=== PATIENT | female | born 1990 | race Caucasian/White ===

== ENCOUNTER → 2020-12-12 15:17 | Outpatient (CLI) | payer OTHER, SELFPAY ==
[2020-12-12 17:55] LABS: Absolute Lymphocyte Count 2.77 X10^3/uL (0.83-4.51); Absolute Neutrophil Count 3.1 X10^3/uL (2.0-7.7); Basophil# 0.05 X10^3/uL; Basophil% 0.8 % (0-1); Eosinophil# 0.07 X10^3/uL; Eosinophils% 1.1 % (0-5); Hematocrit 38.4 % (37-47); Hemoglobin 12.3 g/dL (12.0-15.0); Lymphocyte # 2.77 X10^3/ul (0.83-4.51); Lymphocyte % 42.2 % (19-41); Mean Corpuscular Hgb 28.4 pg (27.0-32.0); Mean Corpuscular Volume 88.7 fL (81-99); Mean Platelet Vol. 9.9 fl (6.2-12.0); Monocyte# 0.53 X10^3/uL; Monocyte% 8.1 % (0-10); NRBC Flagged by Analyzer 0 % (0-5); Neutrophil # 3.13 X10^3/uL (2.7-7.7); Neutrophil % 47.6 % (47-70); Platelet Count 319 K/mm3 (150-450); RBC Distribution Width CV 11.2 % (11.6-14.6); RBC Distribution Width SD 36.4 fl (35.1-43.9); Red Blood Count 4.33 M/mm3 (4.2-5.4); White Blood Count 6.6 K/mm3 (4.4-11.0)
[2020-12-12 18:30] LABS: ALB/GLOB Ratio 0.7 RATIO (0.9-2.4); AST(SGOT) 24 U/L (15-37); Alanine Aminotransfer ALT/SGPT 49 U/L (13-56); Albumin, Serum 3.2 g/dL (3.2-5.0); Alkaline Phosphatase 69 U/L (45-117); Anion Gap 5 (5-15); BUN 8 mg/dL (7-18); BUN/Creat Ratio 10.6 RATIO (10-20); Calcium,Total 8.8 mg/dL (8.5-10.1); Chloride 105 mmol/L (98-107); Creatinine, Serum 0.76 mg/dL (0.55-1.02); EST Glomerular Filtration Rate 95 mL/min (>60); Est Glom Filt Rate - Afr Amer 114 mL/min (>60); Follicle Stimulating Hormone < 0.2 mIU/mL; Globulin 4.3 g/dL (2.2-4.2); Glucose 86 mg/dL (74-106); Luteinizing Hormone < 0.2 mIU/mL; Potassium 3.7 mmol/L (3.5-5.1); Protein, Total 7.5 g/dL (6.4-8.2); Sodium Level 138 mmol/L (136-145); Thyroid Stim Hormone (TSH) 1.52 uIU/mL (0.358-3.74)
== END ==
PROVIDERS: PCP Family Medicine; Referring Provider Family Medicine; Visit Provider Family Medicine
DX: E28.2 Polycystic ovarian syndrome (principal)
CPT/HCPCS: 36415; 80053; 82627; 83001; 83002; 84403; 84443; 85025; 82626

== ENCOUNTER → 2021-04-02 | Outpatient (CLI) | payer OTHER, SELFPAY | END | disposition home or self-care (01) | PROVIDERS: PCP Family Medicine; Referring Provider Family Medicine; Visit Provider Family Medicine | DX: R09.89 Other specified symptoms and signs involving the circulatory and respiratory systems (principal) | CPT/HCPCS: 87635; U0005; U0003 ==

== ENCOUNTER 2021-07-09 12:27 | Outpatient (CLI) | payer BC, SELFPAY ==
[2021-07-09 15:18] LABS: Internal QC Validated? YES +Cl - CLEAR BKGD
[2021-07-09 15:27] LABS: Pregnancy, Serum, hCG Quali. POSITIVE Negative
== END 2021-07-09 23:59 | disposition short-term general hospital (02) ==
LOC: MFPLAB 12:31
PROVIDERS: PCP Family Medicine; Referring Provider Family Medicine; Visit Provider Registered Nurse
DX: Z34.90 Encounter for supervision of normal pregnancy, unspecified, unspecified trimester (principal)
CPT/HCPCS: 36415; 84703

== ENCOUNTER 2021-11-20 15:45 | Outpatient (CLI) | payer BC, SELFPAY ==
[2021-11-20] VITALS (8 sets, daily range): BP systolic 135; BP diastolic 86; PULSE 104–109; TEMP 36.3; O2SAT 92–100; BMI 34.4
[2021-11-20 17:38] LABS: ROM Internal Control Test YES-OK TO RESULT pt. (Internal QC); ROM Patient Test Negative (Negative)
--- NOTE | 2021-11-20 18:27 | OB.TRI.HP_ITS ---
HPI - General HPI Narrative JOSSY BERKOWITZ, is a 31 F G1 at 24.2 weeks gestation who presents to triage with leaking of fluid. Patient c/o constipation and was trying to have a bowel movement at home. She felt a pop and felt fluid come out. She was unable to have a complete bowel movement. Positive movement. No obstetrical concer ns. Maternal Data Information DIETER Calculator Estimated Delivery Date Method Current WG Current Estimate 03/10/22 Manual 24w 2d PFSH PFSH Home Medications lp-ik-[id number]-FA-herbal cmplx#190 [Vitamin D3 Complete] 1 tab PO DAILY 11/20/21 [History Last Taken Unknown] byejgpli-rxn-Wp-FA [] 1 tab PO DAILY 11/20/21 [History Last Taken Unknown] valacyclovir [Valtrex] 500 mg PO BID 11/20/21 [History Last Taken 11/20/21] Allergy/AdvReac Type Severity Reaction Status Date / Time No Known Allergies Allergy Verified 11/20/21 18:28 ROS Eyes Eyes: Denies blurry vision Cardiovascular Cardiovascular: Reports none; Denies chest pain at rest, chest pain with activity or dizziness Respiratory/Chest Respiratory/Chest: Denies cough or dyspnea Gastrointestinal Gastrointestinal: Reports as per HPI, abdominal pain, constipation and excessive flatus Genitourinary Genitourinary: Denies dysuria Musculoskeletal Musculoskeletal: Reports none Integumentary Integumentary: Reports none; Denies rash Neurologic Neurologic: Denies dizziness, headache(s) or other visual disturbances Psychiatric Psychiatric: Reports none Physical Exam Const alert and no apparent distress General Appearance: cooperative Orientation / Consciousness: awake Exam Limitations: no limitations HEENT normocephalic Eyes General Eye: normal appearance of both eyes Neck full ROM Chest inspection of chest normal Resp normal respiratory effort and normal air movement Effort and Inspection: symmetric chest movement Auscultation: clear to auscultation bilaterally Cardio regular rate GI soft to palpation Inspection: and other Back/Spine normal ROM Extremity full ROM, normal capillary refill and no calf tenderness Skin no rashes or lesions noted Neuro oriented x3 and CN's II-XII intact bilaterally Psych mental status grossly normal Assessment & Plan (1) Constipation: (2) 24 weeks gestation of : (3) Abdominal pain: PLAN: FHT via doppler 150 bpm Positive movement CE- closed No vaginal bleeding Large amount of hard stool in bowel felt with vaginal exam and impacting vagina Liquid stool noted draining Patient able to pass small amount of stool while here on unit ROM plus- negative Cleared obstetrically - Patient to ED for evaluation for possible bowel impaction Dr. Hairston involved in plan of care
== END 2021-11-20 18:15 | disposition home or self-care (01) ==
LOC: WPOUT 15:50 → WP 15:50
PROVIDERS: PCP Family Medicine; Visit Provider Advanced Practice Midwife
DX: O26.892 Other specified pregnancy related conditions, second trimester (principal); Z3A.24 24 weeks gestation of pregnancy; K59.00 Constipation, unspecified; R10.9 Unspecified abdominal pain
CPT/HCPCS: 59050; 84112; 99218; G0378

== ENCOUNTER 2021-11-20 18:25 | Emergency (ER) | payer BC, SELFPAY ==
[2021-11-20 18:26] VITALS: BP 121/74; PULSE 94; RESP 18; TEMP 36.4; O2SAT 97; BMI 34.3
--- NOTE | 2021-11-20 19:11 | EX.ED.DYSGE1 ---
HPI History of Present Illness Chief Complaint: Constipation Informant: patient Onset/Context/Timing Onset: Today Context: Gradual Onset Current Severity: Gone Maximum Severity: Severe Worsened by: nothing Relieved by: having BM Associated Symptoms Associated Symptoms: nausea earlier, abd cramping, BRBPR Narrative Narrative: Patient is 24 weeks , she has been constipated recently, today she felt like she needed to have a bowel movement but was unable, except for a couple very small pieces of hard stool followed by some liquid, and subsequently she started having some blood with it and colicky abdominal cramping so she presented herself to the OB triage area, patient states they checked the baby and the baby was doing well, and while she was there she had an extremely large bowel movement and subsequently felt a lot better. She was sent to the emergency department afterwards. PFSH PFSH Medical History no medical history Home Medications hydrocortisone [Proctosol HC] 1 applic NM QHS PRN #30 g 11/20/21 [Rx Last Taken Unknown] magnesium oxide 400 mg PO DAILY 11/20/21 [History Last Taken Unknown] yd-hk-gmoh-FA-herbal cmplx#190 [Vitamin D3 Complete] 1 tab PO DAILY 11/20/21 [History Last Taken Unknown] hxpxgkdn-vja-Wu-FA [] 1 tab PO DAILY 11/20/21 [History Last Taken Unknown] valacyclovir [Valtrex] 500 mg PO BID 11/20/21 [History Last Taken 11/20/21] Allergy/AdvReac Type Severity Reaction Status Date / Time No Known Allergies Allergy Verified 11/20/21 18:28 Family History no significant family his Surgical History Hx of appendectomy Social History Smoking Status: Never smoker ROS ROS ED Constitutional Constitutional ED: Denies chills or fever(s) Eyes Eyes: Denies change in vision or diplopia ENT ENT ED: Denies rhinorrhea or sore throat Cardiovascular Cardiovascular: Denies chest pain or palpitations Respiratory/Chest Respiratory/Chest: Denies cough or dyspnea Gastrointestinal Gastrointestinal: Reports abdominal pain, constipation, nausea and rectal bleeding; Denies diarrhea or vomiting Genitourinary Genitourinary ED: Denies dysuria or hematuria Musculoskeletal Musculoskeletal: Denies back pain or neck pain Integumentary Denies abscess or rash Neurologic Neurologic: Denies headache(s), paresthesias or weakness Psychiatric Psychiatric: Denies anxiety or suicidal thoughts EXAM Physical Exam Const Vital Signs: 11/20/21 18:26 Temperature 97.6 F L Temperature Source Temporal Pulse Rate 94 Respiratory Rate 18 Blood Pressure 121/74 H Blood Pressure Mean 89 Pulse Ox 97 Oxygen Delivery Method Room Air Positive well nourished and well developed General Appearance ED: well developed and NAD HEENT Reports moist mucous membranes normocephalic and atraumatic Eyes PERRL and EOMs intact bilaterally Neck full ROM and supple Resp normal respiratory effort and clear to auscultation bilaterally Cardio regular rate, regular rhythm and no murmurs GI non-tender GI Narrative: Gravid uterus above the umbilicus. At approximately 5:00, there is a small tender clotted nonthrombosed hemorrhoid without active bleeding. At approximately 11:00 there is a small nonbleeding tender fissure. No perianal or rectal abscess palpable. No active bleeding. Auscultation: normoactive bowel sounds Palpation: soft Back/Spine no CVA tenderness General Back: other FROM Extremity normal to inspection General Extremety ED: Negative for edema, pulses abnormal or tenderness General Extremity: Negative for edema or pulses abnormal Neuro oriented x3, CN's II-XII intact bilaterally and no sensory deficits noted Sensorium / Orientation: awake and alert Motor Exam: strength 5/5 throughout Skin no rashes or lesions noted and no wounds MDM MDM MDM Narrative Medical decision making narrative: Patient is very benign abdomen, and on rectal exam, she has a small hemorrhoid and possibly a small fissure. She states that she was advised to come to the ED and get a scan for an obstruction. As I discussed with her, she does not have a bowel obstruction, she is no longer nauseated, and I do not think she needs any imaging to see if there is more stool in her colon given that she is . I think the risks there outweigh the potential benefit. She states she had a large bowel movement already, I do not think we need to do any more treatments right now. However for the hemorrhoid, I will prescribe her some hydrocortisone cream for that, and we discussed sitz bath's for the possible fissure. We also discussed using MiraLAX at home to help soften her stools and she is comfortable with that plan. Discharge Plan Triage Chief Complaint: Constipation ED Provider: Paul Leger Dx/Rx/DC Orders Clinical Impression: Constipation, Bleeding external hemorrhoids, Anal fissure Instructions: ED Understanding Anal Fissures, Taking a Sitz Bath, ED Hemorrhoids Prescriptions: New hydrocortisone [Proctosol HC] 2.5 % cream with perineal applicator 1 applic NM QHS PRN (Reason: hemorrhoids) Qty: 30 RF: 0 No Action valacyclovir [Valtrex] 500 mg Tablet 500 mg PO BID RF: 0 1 mg Tablet 1 tab PO DAILY RF: 0 Vitamin D3 Complete 18 mg iron-800 mcg-150 mg Tablet 1 tab PO DAILY RF: 0 magnesium oxide 400 mg (241.3 mg magnesium) tablet 400 mg PO DAILY RF: 0 Primary Care Provider: Domingo Dubois Referrals: Domingo Dubois MD [Primary Care Provider] - (And/or your [employer] in 1 week if not improving) Activity Restrictions/Additional Instructions: Sitz baths at least once daily until no more perianal pain Disposition Disposition: Home, Self Care
[2021-11-20 19:24] VITALS: PULSE 78; RESP 16; O2SAT 98
== END 2021-11-20 19:24 | disposition home or self-care (01) ==
PROVIDERS: Emergency Provider Emergency Medicine; PCP Family Medicine; Visit Provider Emergency Medicine
DX: O99.612 Diseases of the digestive system complicating pregnancy, second trimester (principal); O26.892 Other specified pregnancy related conditions, second trimester; K60.2 Anal fissure, unspecified; Z3A.24 24 weeks gestation of pregnancy; O22.42 Hemorrhoids in pregnancy, second trimester
CPT/HCPCS: 99282

== ENCOUNTER → 2022-03-01 | Outpatient (CLI) | payer BC, SELFPAY ==
[2022-03-01 19:34] VITALS: PULSE 80; O2SAT 98
[2022-03-01 19:47] VITALS: BP 130/84; PULSE 77; BMI 38.7
[2022-03-01 20:00] VITALS: BP 144/91; PULSE 79
[2022-03-01 20:03] VITALS: BP 145/94; PULSE 75
[2022-03-01 20:19] VITALS: BP 131/84; PULSE 73
[2022-03-01 20:58] LABS: Hematocrit 35.7 % (37-47); Hemoglobin 11.3 g/dL (12.0-15.0); Mean Corp Hgb Conc 31.7 g/dL (32-36); Mean Corpuscular Hgb 29.1 pg (27.0-32.0); Mean Platelet Vol. 9.9 fl (6.2-12.0); Platelet Count 292 K/mm3 (150-450); RBC Distribution Width CV 14.4 % (11.6-14.6); RBC Distribution Width SD 47.6 fl (35.1-43.9); Red Blood Count 3.88 M/mm3 (4.2-5.4); White Blood Count 10.7 K/mm3 (4.4-11.0)
[2022-03-01 21:13] LABS: AST(SGOT) 18 U/L (15-37); Alanine Aminotransfer ALT/SGPT 22 U/L (13-56); Creatinine, Serum 0.85 mg/dL (0.55-1.02); EST Glomerular Filtration Rate 82 mL/min (>60); Est Glom Filt Rate - Afr Amer 99 mL/min (>60); Uric Acid 5.9 mg/dL (2.6-6.0)
[2022-03-01 21:14] LABS: Protein, Urine (Random) 6.5 mg/dL (<11.9); Protein:Creat Ratio 81 mg/g CRE (0-200)
--- NOTE | 2022-03-01 21:22 | HP.PCM.OB_ITS ---
HPI - General General Date of Admission: 03/01/22 Date of Service: 03/01/22 Chief Complaint: headache HPI Narrative JOSSY BERKOWITZ, is a 31 F at 38w2d who presents with a MCCABE. She states she has had a MCCABE all day. Took Tylenol which improved the MCCABE, and it is now very mild. No vision changes. No upper abd pain. Some nausea but she has been eating fair food and then [employer] tonight. Some pressure. No ctx, vb, lof. Good FM. Maternal Data Information DIETER Calculator Estimated Delivery Date Method Current WG Current Estimate 03/10/22 Manual 38w 5d PFSH [facility] Medical History (Updated 03/01/22 @ 21:[address] Ruthy Sahu, DO) Genital herpes affecting Gestational HTN Headache Home Medications magnesium oxide 400 mg (241.3 mg magnesium) tablet 400 mg PO DAILY 11/20/21 [History Last Taken 02/28/22 21:30] multivit with byx-qwdy-MI-#[id number] 18 mg iron-800 mcg-150 mg tablet (Vitamin D3 Complete) 1 tab PO QODAY 11/20/21 [History Last Taken 02/27/22] satqljpg-osf-Al-FA 1 mg tablet 1 tab PO DAILY 11/20/21 [History Last Taken Unknown] valacyclovir 500 mg tablet (Valtrex) 500 mg PO BID 11/20/21 [History Last Taken 03/01/22 06:00] aspirin 81 mg capsule 81 mg PO DAILY high bmi 03/01/22 [History Last Taken 03/01/22 06:00] Allergy/AdvReac Type Severity Reaction Status Date / Time No Known Allergies Allergy Verified 03/01/22 19:49 Surgical History Hx of appendectomy Social History Smoking Status: Never smoker NST FHR Rate Baby A Baseline: 140 Variability:: Moderate Accelerations:: 15 x 15 Decelerations:: None NST Reactive:: Yes FHR Category:: Category I Uterine Activity:: No ctx's Vital Signs Vital Signs Vital Signs: 03/01/22 19:34 03/01/22 19:34 03/01/22 19:47 Pulse Rate 80 Blood Pressure 130/84 H BP Systolic 130 BP Diastolic 84 Pulse Ox 98 03/01/22 19:47 03/01/22 20:00 03/01/22 20:00 Pulse Rate 77 79 Blood Pressure 144/91 H BP Systolic 144 BP Diastolic 91 Pulse Ox 03/01/22 20:03 03/01/22 20:03 03/01/22 20:19 Pulse Rate 75 Blood Pressure 145/94 H 131/84 H BP Systolic 145 131 BP Diastolic 94 84 Pulse Ox 03/01/22 20:19 Pulse Rate 73 Blood Pressure BP Systolic BP Diastolic Pulse Ox Weight Weight: 247 lb 3.2 oz Body Mass Index (BMI) 38.7 Physical Exam Const alert and no apparent distress General Appearance: comfortable HEENT normocephalic Resp normal respiratory effort GI soft to palpation and non-tender Extremity no calf tenderness Extremity Narrative: No hyperreflexia, no clonus, +2 pitting edema bilaterally of LE's Labs Labs Labs: Hct 35.7 % (37-47) L Hgb 11.3 g/dL (12.0-15.0) L Assessment & Plan (1) 38 weeks gestation of : PLAN: - Pt presents at 38 wks with MCCABE. The MCCABE is very mild and has improved with Tylenol. BP mild range. Pre e labs WNL. Had 1 mild range BP in the office as well around 37 week gestation. Given gHTN and 38 week gestation recommend delivery. No evidence of pre e at this time. Cvx 0.5/t/h. Bedside TAUS performed and confirms vertex presentation. GBS negative. Estimated weight expected to be < 4500 g and pelvis adequate. Anticipate vaginal delivery. Discussed r/b/a to induction of labor and pt desires to proceed. She understands we will have to wait to start induction until we have appropriate staff support given current volume on L&D. Discussed Cytotec, Cruz, Pitocin and AROM. Questions answered. - Rh negative - Obesity - H/o HSV: On Acyclovir and no evidence of outbreak. No prodromal symptoms - H/o anemia: Hgb ~11 on admission (2) Gestational hypertension: (3) Obesity affecting : (4) Rh negative status during : (5) History of herpes genitalis:
--- NOTE | 2022-03-01 21:56 | PCM.PN.BLA ---
Progress Note At bedside to discuss plan of care with patient as given staffing issues and volume on L&D induction of labor is unlikely to be started overnight. Pre e work up is negative. Patient's headache has resolved and she feels well. FHT reassuring and reactive. Most recent BP's normal. She had 2 mild range BP's 3 minutes apart. Elevated BP in the office was recorded to be 130/80 and normal on repeat. Discussed recommendation is for IOL given likely gHTN. Discussed risk of developing pre eclampsia and risks with pre eclampsia including but not limited to seizure, stroke, or maternal . Discussed option for going home to sleep tonight, and I will call her in the morning to check in and get an update on L&D as well. She understands risks with this option, and wishes to go home. Also discussed option for staying for admission and BP monitoring until induction is able to be started. Currently induction of labor is able to be started tomorrow night, and possibly tomorrow in the morning. Discussed warning signs and symptoms of pre e, and reasons to call. I will call the patient tomorrow.
== END | disposition home or self-care (01) ==
LOC: WPOUT 19:21 → WP 19:21 → WPOUT 21:08 → WP 21:09 → WPOUT 22:12
PROVIDERS: PCP Family Medicine; Visit Provider Obstetrics & Gynecology
DX: O13.3 Gestational [pregnancy-induced] hypertension without significant proteinuria, third trimester (principal); O99.891 Other specified diseases and conditions complicating pregnancy; R51.9 Headache, unspecified; R11.0 Nausea; Z3A.38 38 weeks gestation of pregnancy; O99.213 Obesity complicating pregnancy, third trimester
CPT/HCPCS: 36415; 59025; 59050; 82565; 82570; 84156; 84450; 84460; 84550; 85027; 99218; G0378

== ENCOUNTER 2022-03-02 09:25 | Inpatient (IN) | payer BC, SELFPAY ==
[2022-03-02] VITALS (23 sets, daily range): BP systolic 116–147; BP diastolic 68–92; PULSE 44–112; TEMP 36.6–37.1; O2SAT 81–99; BMI 38.5
[2022-03-02 10:35] LABS: Absolute Lymphocyte Count 2.24 X10^3/uL (0.83-4.51); Absolute Neutrophil Count 5.9 X10^3/uL (2.0-7.7); Basophil# 0.05 X10^3/uL; Basophil% 0.6 % (0-1); Eosinophil# 0.03 X10^3/uL; Eosinophils% 0.3 % (0-5); Hematocrit 35.4 % (37-47); Hemoglobin 11.4 g/dL (12.0-15.0); Lymphocyte # 2.24 X10^3/ul (0.83-4.51); Lymphocyte % 25.3 % (19-41); Mean Corp Hgb Conc 32.2 g/dL (32-36); Mean Corpuscular Hgb 29.5 pg (27.0-32.0); Mean Corpuscular Volume 91.7 fL (81-99); Monocyte# 0.57 X10^3/uL; Monocyte% 6.4 % (0-10); NRBC Flagged by Analyzer 0 % (0-5); Neutrophil # 5.85 X10^3/uL (2.7-7.7); Neutrophil % 66.3 % (47-70); Platelet Count 307 K/mm3 (150-450); RBC Distribution Width CV 14.4 % (11.6-14.6); RBC Distribution Width SD 47.8 fl (35.1-43.9); Red Blood Count 3.86 M/mm3 (4.2-5.4); White Blood Count 8.8 K/mm3 (4.4-11.0)
[2022-03-02] MEDS: miSOPROStol 25 MCG TABLET PO ×2 (14:21→18:53)
[2022-03-02] MEDS: 0.9% Normal Saline Single 100 ML IV.SOLN. INTRA-UTER (18:53)
--- NOTE | 2022-03-02 18:58 | HP.PCM.OB_ITS ---
HPI - General General Date of Admission: 03/02/22 Date of Service: 03/02/22 Chief Complaint: gHTN HPI Narrative JOSSY BERKOWITZ, is a 31 F who presents at 38 week gestation for an IOL for gHTN. She was on L&D for r/o pre e yesterday. She had 2 mild range BP's at that time. Her MCCABE had resolved. Pre e labs were unremarkable. Given volume and staffing on L&D her induction was unable to be started last night. She elected to go home to sleep, and returned in the morning. BP's have been normal. However her MCCABE has returned. She denies vision changes, upper abd pain, N/V. She has LE swelling. Maternal Data Information DIETER Calculator Estimated Delivery Date Method Current WG Current Estimate 03/10/22 Manual 38w 6d Final DIETER: 03/10/22 Final DIETER [facility] Medical History (Updated 03/01/22 @ 21:[address] Ruthy Sahu, DO) Genital herpes affecting Gestational HTN Headache Home Medications magnesium oxide 400 mg (241.3 mg magnesium) tablet 400 mg PO DAILY Check with primary doctor 11/20/21 [History Last Taken 03/01/22 23:00] multivit with dfw-xuhm-HB-#190herbal 18 mg iron-800 mcg-150 mg tablet (Vitamin D 3 Complete) 1 tab PO QODAY Check with primary doctor 11/20/21 [History Last Taken 03/02/22 07:00] eqtvhsde-bcp-Uy-FA 1 mg tablet 1 tab PO DAILY Check with primary doctor 11/20/21 [History Last Taken 03/02/22 07:00] valacyclovir 500 mg tablet (Valtrex) 500 mg PO BID Check with primary doctor 11/20/21 [History Last Taken 03/02/22 07:00] aspirin 81 mg capsule 81 mg PO DAILY high bmi 03/01/22 [History Last Taken 03/02/22 07:00] Allergy/AdvReac Type Severity Reaction Status Date / Time No Known Allergies Allergy Verified 03/01/22 19:49 Surgical History Hx of appendectomy Social History Smoking Status: Never smoker History Elective abortions Hx Para 0 Spontaneous abortions Hx # Term Pregnancies Ectopic pregnancies Hx # Pregnancies Multiple births # of living children NST FHR Rate Baby A FHR Category:: Category I Uterine Activity:: Occasional ctx's Vital Signs Vital Signs Vital Signs: 03/02/22 09:35 03/02/22 09:35 03/02/22 09:40 Temperature Temperature Source Pulse Rate 112 H Blood Pressure 119/86 H BP Systolic 119 BP Diastolic 86 Pulse Ox 97 03/02/22 09:40 03/02/22 09:40 03/02/22 09:40 Temperature Temperature Source Pulse Rate 98 103 H Blood Pressure BP Systolic BP Diastolic Pulse Ox 93 03/02/22 09:40 03/02/22 09:45 03/02/22 09:45 Temperature Temperature Source Pulse Rate 100 Blood Pressure BP Systolic BP Diastolic Pulse Ox 97 97 03/02/22 09:50 03/02/22 09:50 03/02/22 09:55 Temperature Temperature Source Pulse Rate 93 100 Blood Pressure BP Systolic BP Diastolic Pulse Ox 96 03/02/22 09:55 03/02/22 09:58 03/02/22 09:58 Temperature Temperature Source Pulse Rate 96 Blood Pressure 123/81 H BP Systolic 123 BP Diastolic 81 Pulse Ox 96 03/02/22 10:14 03/02/22 10:14 03/02/22 10:29 Temperature Temperature Source Pulse Rate 94 Blood Pressure 121/82 H 116/68 BP Systolic 121 116 BP Diastolic 82 68 Pulse Ox 03/02/22 10:29 03/02/22 13:14 03/02/22 13:14 Temperature Temperature Source Pulse Rate 88 90 Blood Pressure 123/86 H BP Systolic 123 BP Diastolic 86 Pulse Ox 03/02/22 13:15 03/02/22 14:18 03/02/22 14:18 Temperature 98.8 F Temperature Source Pulse Rate 86 Blood Pressure BP Systolic BP Diastolic Pulse Ox 97 03/02/22 14:18 03/02/22 14:19 03/02/22 14:20 Temperature 98.4 F Temperature Source Pulse Rate 44 L Blood Pressure 119/80 BP Systolic 119 BP Diastolic 80 Pulse Ox 03/02/22 14:20 03/02/22 14:19 03/02/22 13:14 Temperature Temperature Source Temporal Temporal Pulse Rate Blood Pressure BP Systolic BP Diastolic Pulse Ox 81 03/02/22 18:08 03/02/22 18:08 03/02/22 18:08 Temperature 98.1 F Temperature Source Pulse Rate 76 Blood Pressure 127/86 H BP Systolic 127 BP Diastolic 86 Pulse Ox Weight Weight: 246 lb Body Mass Index (BMI) 38.5 Physical Exam Const alert and no apparent distress General Appearance: comfortable HEENT normocephalic Resp normal respiratory effort GI soft to palpation and non-tender Extremity Extremity Narrative: 2+ pitting edema bilaterally, no hyper reflexia, no clonus Labs Labs Labs: Blood Type AB NEGATIVE Antibody Screen NEGATIVE Hct 35.4 % (37-47) L Hgb 11.4 g/dL (12.0-15.0) L Assessment & Plan (1) History of herpes genitalis: PLAN: - Pt has been on suppression. No lesions noted and no prodromal symptoms (2) Rh negative status during : PLAN: - Rhogam candidate (3) Obesity affecting : (4) Gestational hypertension: PLAN: - Pre e workup negative yesterday. BP's have been normal. She had mild range pressures yesterday during observation, and a mild range BP in the office at a routine visit. She has a MCCABE and no other symptoms. She reports she has had a MCCABE off and on for weeks (5) 38 weeks gestation of : PLAN: - Routine intrapartum care - GBS negative - Epidural for pain control - S/p 1 dose of Cytotec. Intracervical wallace placed in usual fashion and filled with 40 cc. Will give 2nd dose of Cytotec. Once wallace out and 4 hours from Cytotec, to start Pitocin - Cont close monitoring of BP's - EFW expected to be < 4500 g and pelvis adequate - Anticipate vaginal delivery
[2022-03-02] MEDS: Acetaminophen 500 MG Tablet PO (19:45)
[2022-03-03] VITALS (43 sets, daily range): BP systolic 109–197; BP diastolic 60–97; PULSE 67–137; TEMP 36.8–37.8; O2SAT 87–100
[2022-03-03] MEDS: Lactated Ringers 1,000 ML 50 ML IV (00:43)
[2022-03-03] MEDS: Oxytocin 30 units/NS 500 ml 30 UNITS/500 ML IV.SOLN IV (00:43)
[2022-03-03 04:55] LABS: ROM Internal Control Test YES-OK TO RESULT pt. (Internal QC)
[2022-03-03 04:56] LABS: ROM Patient Test POSITIVE (Negative)
[2022-03-03] MEDS: LACTATED RINGERS 500 ML 999 ML IV (06:45)
[2022-03-03] MEDS: Lactated Ringers 1,000 ML 200 ML IV ×2 (10:35→16:13)
[2022-03-03] MEDS: fentaNYL-bupivacaine (epidural) 100 ML BAG EPIDURAL ×3 (10:36→16:45)
[2022-03-03] MEDS: Acetaminophen 500 MG Tablet PO ×2 (11:58→15:01)
--- NOTE | 2022-03-03 19:49 | EX.PCM.OBRPT ---
Maternal Data Information DIETER Calculator Estimated Delivery Date Method Current WG Current Estimate 03/13/22 Manual 38w 4d Final DIETER: 03/13/22 Gestational age: 38&4 Vaginal Delivery Maternal Presentation Maternal Presentation: Medically Indicated Induction Type of Induction: Pitocin, Cruz Bulb, Amniotomy and Cytotec Medical Reason for Induction: Gestational Hypertension Operative Information Date of Procedure: 03/03/22 Pre-Operative Diagnosis: Gestational hypertension Post-Operative Diagnosis: Same Surgery / Procedure Performed: Spontaneous Vaginal Delivery Type of Anesthesia: Epidural Estimated Blood Loss: 500ml Findings Description of Procedure: Patient prepped & draped when C/C/+2. She pushed well to deliver the head. head gently guided to allow delivery of anterior and posterior shoulders. No excess traction placed on head. Body delivered and 3VC clamped & cut in delayed fashion. Placenta delivered with gentle traction and good uterine tone obtained. Presentation: ABBY Amniotic Membrane Rupture Type: Spontaneous Amniotic Fluid Description: Clear Placental Delivery Description: Manual Removal (Uterus manually explored and TAUS performed to ensure no retained POC's) Placenta Disposition: [facility] Specimen(s) Removed: Placenta Cord Vessel Description: 3 Vessels Cord Entanglement: Around neck x 1, loose Nuchal Cord Compression: Without compression Infant A Gender: Female (Padmini) (1 minute): 8 (5 minute): 9 Delayed Cord Clamping: Yes Post Vaginal Delivery Medications Given After Delivery: IV Pitocin and - (rectal cytotec) Episiotomy Description: None Laceration: 2nd degree (perineal - repaired with 3-0 vicryl) Complication Complications: None
[2022-03-03] MEDS: Oxytocin 30 units/NS 500 ml 30 UNITS/500 ML IV.SOLN 999 UNITS IV (20:01)
[2022-03-03] MEDS: Cefazolin 2 GM in 0.9% Normal Saline 100 ML IV (20:09)
[2022-03-03] MEDS: Ondansetron 4 MG/2 ML Vial IV (20:43)
[2022-03-03] MEDS: miSOPROStol 200 MCG Tablet 1000 MCG RC (20:44)
[2022-03-03] MEDS: Acetaminophen 500 MG Tablet 1000 MG PO (23:38)
[2022-03-04] VITALS (7 sets, daily range): BP systolic 115–140; BP diastolic 64–87; PULSE 97–116; RESP 15–16; TEMP 36.3–36.7; O2SAT 97–98
[2022-03-04] MEDS: Ibuprofen 600 MG Tablet PO (05:10)
[2022-03-04 05:11] LABS: Hematocrit 25.4 % (37-47); Hemoglobin 8.3 g/dL (12.0-15.0); Mean Corp Hgb Conc 32.7 g/dL (32-36); Mean Corpuscular Hgb 29.9 pg (27.0-32.0); Mean Corpuscular Volume 91.4 fL (81-99); Mean Platelet Vol. 9.7 fl (6.2-12.0); Platelet Count 234 K/mm3 (150-450); RBC Distribution Width CV 14.5 % (11.6-14.6); RBC Distribution Width SD 48.5 fl (35.1-43.9); Red Blood Count 2.78 M/mm3 (4.2-5.4); White Blood Count 22.7 K/mm3 (4.4-11.0)
--- NOTE | 2022-03-04 07:19 | PCM.PROGNOTE ---
Subjective Subjective patient seen at bedside, doing well. Patient reports good pain control. lochia mild. Objective Data Objective Data Vital Signs: Vital Signs Temp Pulse Resp BP Pulse Ox O2 Del Method 98.1 F 116 H 16 128/77 H 100 Room Air 03/04/22 04:15 03/04/22 04:15 03/04/22 04:15 03/04/22 04:15 03/03/22 19:49 03/04/22 04:15 Oxygen Delivery Method Room Air Weight: 111.584 kg Body Mass Index (BMI) 38.5 Intake & Output: Intake and Output for Last 24 Hours 03/02/22 03/03/22 03/04/22 23:59 23:59 23:59 Intake Total 3556.17 / 3556.17 700 / 700 Output Total 500 / 500 Balance 3056.17 / 3056.17 700 / 700 Lab / Micro Data Result Diagrams: 03/04/22 05:05 Labs: Laboratory Results - last 24 hr 03/03/22 20:35: Screen NEGATIVE, Baby's Blood Type A POSITIVE, Baby's JHONNY NEGATIVE 03/04/22 05:05: WBC 22.7 H, RBC 2.78 L, Hgb 8.3 L, Hct 25.4 L, MCV 91.4, MCH 29.9, MCHC 32.7, RDW Std Deviation 48.5 H, RDW Coeff of Santos 14.5, Plt Count 234, MPV 9.7 Micro: Microbiology 03/02/22 10:19 Nasal Secretion SARS-CoV-2 Antigen (Rapid) - Final Physical Exam Const alert and oriented x3 General Appearance: cooperative HEENT normocephalic Neck General: normal visual inspection GI soft to palpation and non-distended GI Narrative: Fundus firm Extremity normal to inspection and no calf tenderness Skin no rashes or lesions noted Neuro oriented x3 and CN's II-XII intact bilaterally Psych mental status grossly normal Assessment & Plan Assessment/Plan (1) History of gestational hypertension: (2) Vaginal delivery: PLAN: Plan PPD#1 , Doing well Routine care pain mgmt ambulation vs stable- will continue to monitor- Gest HTN in Start PO iron
--- NOTE | 2022-03-04 10:32 | NURSING ---
This nurse reviewed vital signs charting done by student nurseCharissa.
[2022-03-04] MEDS: Ferrous Sulfate 325 MG Tablet PO (12:45)
[2022-03-04] MEDS: Acetaminophen 500 MG Tablet 1000 MG PO (12:45)
--- NOTE | 2022-03-04 15:55 | NURSING ---
Student charting reviewed by BEV Grimm instructor
[2022-03-04] MEDS: Senna/Docusate Sodium 1 Tablet PO (23:30)
[2022-03-05] MEDS: Acetaminophen 500 MG Tablet 1000 MG PO ×2 (02:32→10:31)
[2022-03-05 02:45] VITALS: BP 135/84; PULSE 104; RESP 16; TEMP 36.6
--- NOTE | 2022-03-05 06:54 | NURSING ---
Charting done by Ajith reviewed by Kim, BLANCA
[2022-03-05 07:37] VITALS: RESP 16
[2022-03-05 07:48] VITALS: BP 125/87; PULSE 101; RESP 16; TEMP 36.5; O2SAT 96
--- NOTE | 2022-03-05 08:31 | PCM.PN.OB ---
Subjective Subjective Patient seen at bedside. . Denies any headache, vision changes, dizziness, SOB or CP. Ambulating and voiding without difficulty. Lochia decreasing. Desires discharge home today. Objective Data Objective Data Vital Signs: Vital Signs Temp Pulse Resp BP Pulse Ox O2 Del Method 97.7 F L 101 H 16 125/87 H 96 Room Air 03/05/22 07:48 03/05/22 07:48 03/05/22 07:48 03/05/22 07:48 03/05/22 07:48 03/05/22 07:48 Oxygen Delivery Method Room Air Weight: 246 lb Body Mass Index (BMI) 38.5 Intake & Output: Intake and Output for Last 24 Hours 03/03/22 03/04/22 03/05/22 23:59 23:59 23:59 Intake Total 3556.17 / 3556.17 700 / 700 Output Total 500 / 500 100 / 100 Balance 3056.17 / 3056.17 600 / 600 Lab / Micro Data Result Diagrams: 03/04/22 05:05 Micro: Microbiology 03/02/22 10:19 Nasal Secretion SARS-CoV-2 Antigen (Rapid) - Final ROS Eyes Eyes: Denies blurry vision, change in vision or spots in vision ENT HEENT: Denies dizziness or headache(s) Cardiovascular Cardiovascular: Denies abdominal pain, chest pain or dyspnea Respiratory/Chest Respiratory/Chest: Denies cough, dyspnea, shortness of breath at rest or shortness of breath with exertion Gastrointestinal Gastrointestinal: Denies abdominal pain, diarrhea or vomiting Genitourinary Genitourinary: Denies change in urinary stream, difficulty urinating or dysuria Musculoskeletal Musculoskeletal: Reports none Integumentary Integumentary: Denies rash Neurologic Neurologic: Denies dizziness, headache(s), memory loss or weakness Physical Exam Const alert and no apparent distress General Appearance: cooperative and comfortable Exam Limitations: no limitations HEENT normocephalic Eyes General Eye: normal appearance of both eyes Neck full ROM General: normal visual inspection Chest Chest: symmetrical chest wall rise Resp normal respiratory effort and normal air movement Effort and Inspection: symmetric chest movement Auscultation: clear to auscultation bilaterally Cardio regular rate and regular rhythm GI normal to inspection, nondistended, normoactive bowel sounds Back/Spine normal ROM Extremity full ROM and no calf tenderness General Extremity: normal exam except as noted Skin no rashes or lesions noted Neuro CN's II-XII intact bilaterally Psych mental status grossly normal Assessment & Plan (1) Vaginal delivery: (2) History of gestational hypertension: (3) Care and examination of lactating mother: PLAN: Plan PPD 2 Blood pressures within normal ranges Preeclampsia precautions reviewed support Desires discharge home Follow up in office this week for BP check
--- NOTE | 2022-03-05 08:35 | DCINST_ITS ---
Discharge Instructions Diet Discharge Diet: No restrictions Activity Discharge Activity: Return to Normal Activity and May Shower May resume sexual activity in: 6-8 weeks Weight Bearing Status: Weight bearing as tolerated Dressing / Incision Call your doctor if you observe: Fever of 101 or Higher, Inability to urinate, Inability to have a bowel movement, Using more than 1 pad per hour, Shortness of breath, Dizziness, Swelling in the ankles, Chest pain, Calf discomfort and Uncontrolled pain Follow Up Care Please Follow Up With: Ruthy Sahu DO When: Thursday in office for BP check Test Results: Test results from this visit will be discussed in further detail at your follow- up appointment, if applicable. Discharge Plan Admission Admit Date/Time: 03/02/22 09:25 Primary Reason for Your Visit: Labor and Delivery Attending Provider: Willy Dumont Primary Care Provider: Domingo Dubois Discharge Orders/Prescriptions Prescriptions: New sennosides-docusate sodium [Stool Softener-Stimulant Laxat] 8.6-50 mg Tablet 1 - 2 tab PO DAILY PRN PRN (Reason: Constipation ) Qty: 0 0RF ferrous sulfate [FeroSul] 325 mg (65 mg iron) Tablet 325 mg PO DAILY@1200 Qty: 0 0RF Continued valacyclovir [Valtrex] 500 mg Tablet 500 mg PO BID bohxirvr-fch-Ci-FA 1 mg Tablet 1 tab PO DAILY Vitamin D3 Complete 18 mg iron-800 mcg-150 mg Tablet 1 tab PO QODAY Discontinued magnesium oxide 400 mg (241.3 mg magnesium) tablet 400 mg PO DAILY aspirin 81 mg Capsule 81 mg PO DAILY Referrals / Follow Up: Domingo Dubois MD [Primary Care Provider] - Disposition Disposition (needs filled in before D/C Order can be placed): Home, Self Care
--- NOTE | 2022-03-05 13:10 | NURSING ---
student charting AL reviewed. used for learning and educations purposes.
--- NOTE | 2022-03-07 08:15 | NURSING ---
Follow up questions asked by Spring Carlson at pt's follow up appt on 03/06/22. Pt. enjoyed her experience at [facility] and is doing well.
== END 2022-03-05 11:00 | disposition home or self-care (01) | DRG 806 ==
PROVIDERS: Admitting Provider Obstetrics & Gynecology; PCP Family Medicine; Visit Provider Obstetrics & Gynecology
DX: O13.4 Gestational [pregnancy-induced] hypertension without significant proteinuria, complicating childbirth (principal); Z37.0 Single live birth; D62 Acute posthemorrhagic anemia; O69.81X0 Labor and delivery complicated by cord around neck, without compression, not applicable or unspecified; O99.214 Obesity complicating childbirth; Z3A.38 38 weeks gestation of pregnancy; Z79.82 Long term (current) use of aspirin; Z86.19 Personal history of other infectious and parasitic diseases; Z67.91 Unspecified blood type, Rh negative; O70.1 Second degree perineal laceration during delivery; O90.81 Anemia of the puerperium; Z39.1 Encounter for care and examination of lactating mother
CPT/HCPCS: 59025; 59050; 84112; 85025; 85027; 85461; 86850; 86900; 86901; 87811; 90384; 99218; J7120; G0378; J2405; J2790

== ENCOUNTER → 2023-02-24 | Outpatient (CLI) | payer BC, SELFPAY ==
--- NOTE | 2023-02-24 10:45 | RAD_ITS ---
INDICATION: Productive cough EXAMINATION/TECHNIQUE: X-RAY - XR Chest 2 Views COMPARISON: No prior examinations are available for comparison. FINDINGS: LINES/DEVICES: None. LUNGS: No consolidation, edema or effusion. No pneumothorax. MEDIASTINUM AND CARDIOVASCULAR STRUCTURES: Cardiac silhouette not enlarged. Central airways and mediastinal contour are unremarkable. BONES AND SOFT TISSUES: Unremarkable. RAD/Chest PA and Lateral IMPRESSION: No radiographic evidence of acute cardiopulmonary disease. Electronically Signed: Sanjay Biggs MD at 13:40 EDT ,
== END | disposition home or self-care (01) ==
LOC: MTRAD 10:45
PROVIDERS: PCP Family Medicine; Referring Provider Family Medicine; Visit Provider Family Medicine
DX: R05.8 Other specified cough (principal)
CPT/HCPCS: 71046

== ENCOUNTER → 2023-03-20 | Outpatient (CLI) | payer BC, SELFPAY ==
[2023-03-20 11:12] LABS: D-Dimer Quantitative (DVT/PE) 0.38 FEU/ug/m (0.27-0.49)
== END | disposition home or self-care (01) ==
LOC: LABSPEC 10:36
PROVIDERS: PCP Family Medicine; Referring Provider Nurse Practitioner Acute Care; Visit Provider Nurse Practitioner Acute Care
DX: R05.1 Acute cough (principal)
CPT/HCPCS: 85379

== ENCOUNTER 2024-05-15 19:25 | Outpatient (CLI) | payer BC, SELFPAY ==
[2024-05-15 19:30] VITALS: BMI 41.1
[2024-05-15 19:40] VITALS: RESP 16; TEMP 36.1
[2024-05-15 19:44] VITALS: BP 121/73; PULSE 93; O2SAT 95
[2024-05-15 20:01] VITALS: BP 118/72; PULSE 99
[2024-05-15 20:04] LABS: Hematocrit 30.1 % (37-47); Hemoglobin 9.6 g/dL (12.0-15.0); Mean Corp Hgb Conc 31.9 g/dL (32-36); Mean Corpuscular Hgb 25.1 pg (27.0-32.0); Mean Corpuscular Volume 78.6 fL (81-99); Mean Platelet Vol. 9.5 fl (6.2-12.0); Platelet Count 346 K/mm3 (150-450); RBC Distribution Width CV 14.2 % (11.6-14.6); Red Blood Count 3.83 M/mm3 (4.2-5.4); White Blood Count 10.7 K/mm3 (4.4-11.0)
[2024-05-15 20:15] LABS: Protein, Urine (Random) 17.5 mg/dL (<11.9); Protein:Creat Ratio 97 mg/g CRE (0-200)
[2024-05-15 20:16] VITALS: BP 121/68; PULSE 93
[2024-05-15 20:27] LABS: AST(SGOT) 20 U/L (15-37); Alanine Aminotransfer ALT/SGPT 25 U/L (13-56); Creatinine, Serum 0.69 mg/dL (0.55-1.02); EST Glomerular Filtration Rate 104 mL/min (>60); Est Glom Filt Rate - Afr Amer 126 mL/min (>60); Estimated Creatinine Clearance 148.48 ml/min; Uric Acid 3.9 mg/dL (2.6-6.0)
[2024-05-15 20:30] VITALS: BP 115/61; PULSE 105
[2024-05-15] MEDS: Acetaminophen/Butalbital/Caffe 1 Tablet 2 TABLET PO (20:35)
--- NOTE | 2024-05-15 20:41 | OB.TRI.NOTE ---
HPI - General HPI Narrative JOSSY BERKOWITZ, is a 33 F at 35.5 weeks gestation who presents for prolonged headache and swelling of feet and hands. Maternal Data Information DIETER Calculator Estimated Delivery Date Method Current WG Current Estimate 06/14/24 Manual 35w 5d PFSH PFS Medical History (Updated 05/15/24 @ 20:50 by Linda Denise CNM) Care and examination of lactating mother Vaginal delivery History of gestational hypertension History of herpes genitalis Rh negative status during Obesity affecting Gestational hypertension Genital herpes affecting Headache Gestational HTN Home Medications ?Medication ?Instructions ?Recorded ?Last Taken ?Type multivit with 1 tab PO QODAY Check with primary 11/20/21 05/15/24 History ylr-yyxy-[id number]-#190herbal 18 mg doctor iron-800 mcg-150 mg tablet (Vitamin D3 Complete) pidwliqp-tha-Sc-FA 1 mg 1 tab PO DAILY Check with primary 11/20/21 05/15/24 History tablet doctor valacyclovir 500 mg tablet 500 mg PO BID Check with primary 11/20/21 03/02/22 07:00 History (Valtrex) doctor aspirin 81 mg capsule 162 mg PO DAILY 05/15/24 05/15/24 History docusate sodium 50 mg capsule 50 mg PO DAILY 05/15/24 05/15/24 History (Colace Clear) ferrous sulfate 325 mg (65 mg 325 mg PO .MWF 05/15/24 05/15/24 History iron) tablet (FeroSul) sertraline 50 mg tablet (Zoloft) 50 mg PO DAILY 05/15/24 05/15/24 History Allergy/AdvReac Type Severity Reaction Status Date / Time No Known Allergies Allergy Verified 05/15/24 19:39 Surgical History Hx of appendectomy Social History Smoking Status: Never smoker History Elective abortions Hx Para 0 Spontaneous abortions Hx # Term Pregnancies Ectopic pregnancies Hx # Pregnancies Multiple births # of living children ROS Eyes Eyes: Denies blurry vision Cardiovascular Cardiovascular: Reports none; Denies chest pain at rest, chest pain with activity or dizziness Respiratory/Chest Respiratory/Chest: Denies cough or dyspnea Gastrointestinal Gastrointestinal: Reports none and other; Denies diarrhea or vomiting Genitourinary Genitourinary: Denies dysuria Musculoskeletal Musculoskeletal: Reports none Integumentary Integumentary: Reports none; Denies rash Neurologic Neurologic: Reports as per HPI and headache(s); Denies other visual disturbances Psychiatric Psychiatric: Reports none NST FHR Rate Baby A Baseline: 140 Variability:: Moderate Accelerations:: 15 x 15 Decelerations:: None NST Reactive:: Yes FHR Category:: Category I Uterine Activity:: None Assessment & Plan (1) 35 weeks gestation of : (2) Bilateral swelling of feet: (3) History of pre-eclampsia in prior , currently : PLAN: Plan Blood pressures within normal ranges Fioricet 2 tabs PO x 1 now Pre e labs- normal Non pitting edema in bilateral feet D/C home with follow up in office this week Reviewed preeclampsia precautions and when to call
== END 2024-05-15 20:48 | disposition home or self-care (01) ==
LOC: WPOUT 19:26 → WP 19:27
PROVIDERS: PCP Family Medicine; Referring Provider Advanced Practice Midwife; Visit Provider Advanced Practice Midwife
DX: O99.891 Other specified diseases and conditions complicating pregnancy (principal); R51.9 Headache, unspecified; M79.89 Other specified soft tissue disorders; Z3A.35 35 weeks gestation of pregnancy; Z79.82 Long term (current) use of aspirin; Z79.899 Other long term (current) drug therapy; O09.293 Supervision of pregnancy with other poor reproductive or obstetric history, third trimester
CPT/HCPCS: 36415; 59025; 59050; 82565; 82570; 84156; 84450; 84460; 84550; 85027; 99221; G0378

== ENCOUNTER 2024-06-08 07:25 | Inpatient (IN) | payer BC, SELFPAY ==
[2024-06-08] VITALS (50 sets, daily range): BP systolic 115–152; BP diastolic 58–87; PULSE 71–103; RESP 16; TEMP 36.3–36.9; O2SAT 89–100; BMI 40.0
[2024-06-08 08:04] LABS: Absolute Lymphocyte Count 2.34 X10^3/uL (0.83-4.51); Absolute Neutrophil Count 6.8 X10^3/uL (2.0-7.7); Basophil# 0.04 X10^3/uL; Basophil% 0.4 % (0-1); Eosinophil# 0.03 X10^3/uL; Eosinophils% 0.3 % (0-5); Hematocrit 30.9 % (37-47); Hemoglobin 9.8 g/dL (12.0-15.0); Lymphocyte # 2.34 X10^3/ul (0.83-4.51); Lymphocyte % 23.6 % (19-41); Mean Corp Hgb Conc 31.7 g/dL (32-36); Mean Corpuscular Hgb 24.7 pg (27.0-32.0); Mean Corpuscular Volume 77.8 fL (81-99); Mean Platelet Vol. 9.6 fl (6.2-12.0); Monocyte% 6.1 % (0-10); NRBC Flagged by Analyzer 0 % (0-5); Neutrophil # 6.82 X10^3/uL (2.7-7.7); Neutrophil % 68.8 % (47-70); Platelet Count 342 K/mm3 (150-450); RBC Distribution Width CV 14.9 % (11.6-14.6); RBC Distribution Width SD 42.2 fl (35.1-43.9); Red Blood Count 3.97 M/mm3 (4.2-5.4); White Blood Count 9.9 K/mm3 (4.4-11.0)
[2024-06-08] MEDS: miSOPROStol 25 MCG TABLET VAGINAL (09:30)
[2024-06-08] MEDS: Lactated Ringers 1,000 ML 50 ML IV ×2 (09:30→17:30)
[2024-06-08] MEDS: Oxytocin 15 Units/NS 250ml 15 UNITS/250 ML IV.SOLN 2 UNITS IV (14:00)
[2024-06-08] MEDS: fentaNYL-bupivacaine (epidural) 100 ML BAG EPIDURAL ×2 (16:16→20:34)
--- NOTE | 2024-06-08 18:12 | PN.OBGYN_ITS ---
Subjective Subjective AROM for clear fluid. 3 cm Cat I Objective Data Objective Data Vital Signs: Vital Signs Temp Pulse Resp BP Pulse Ox 97.4 F L 82 16 133/75 H 98 06/08/24 14:00 06/08/24 16:32 06/08/24 14:00 06/08/24 16:32 06/08/24 16:28 Weight: 116 kg Body Mass Index (BMI) 40.0 Intake & Output: Intake and Output for Last 24 Hours 06/06/24 06/07/24 06/08/24 23:59 23:59 23:59 Intake Total 226.47 / 226.47 Output Total 900 / 900 Balance -673.53 / -673.53 Lab / Micro Data 06/08/24 07:50 Labs: Laboratory Results - last 24 hr 06/08/24 07:50: WBC 9.9, RBC 3.97 L, Hgb 9.8 L, Hct 30.9 L, MCV 77.8 L, MCH 24.7 L, MCHC 31.7 L, RDW Std Deviation 42.2, RDW Coeff of Santos 14.9 H, Plt Count 342, MPV 9.6, Immature Gran % (Auto) 0.800, Neut % (Auto) 68.8, Lymph % (Auto) 23.6, [place] % (Auto) 6.1, Eos % (Auto) 0.3, Baso % (Auto) 0.4, Absolute Neuts (auto) 6.8, Absolute Lymphs (auto) 2.34, Nucleated RBC % 0, Blood Type AB NEGATIVE, Antibody Screen NEGATIVE NST FHR Rate Baby A Baseline: 140 Variability:: Moderate Accelerations:: 15 x 15 Decelerations:: None NST Reactive:: Yes FHR Category:: Category I Uterine Activity:: q4 Assessment & Plan (1) 39 weeks gestation of : (2) Elective induction of labor planned:
--- NOTE | 2024-06-08 18:19 | PCM.HP.OB ---
HPI - General General Date of Admission: 06/08/24 Date of Service: 06/08/24 Chief Complaint: induction of labor HPI Narrative JOSSY BERKOWITZ, is a 33 F who presents induction of labor for maternal obesity Maternal Data Information DIETER Calculator Estimated Delivery Date Method Current WG Current Estimate 06/14/24 Manual 39w 1d Final DIETER: 06/14/24 Gestational age: 39+1 PFSH PFSH Medical History depression Pre-eclampsia Care and examination of lactating mother Vaginal delivery History of gestational hypertension History of herpes genitalis Rh negative status during Obesity affecting Gestational hypertension Genital herpes affecting Headache Gestational HTN Home Medications ?Medication ?Instructions ?Recorded ?Last Taken ?Type multivit with 1 tab PO QODAY Check with primary 11/20/21 05/15/24 History ouj-xaqm-MP-#190herbal 18 mg doctor iron-800 mcg-150 mg tablet (Vitamin D3 Complete) owomheji-rwq-Mi-FA 1 mg 1 tab PO DAILY Check with primary 11/20/21 06/08/24 05:00 History tablet doctor 1 TAB valacyclovir 500 mg tablet 500 mg PO BID Check with primary 11/20/21 06/08/24 05:00 History (Valtrex) doctor 500 mg aspirin 81 mg capsule 162 mg PO DAILY 05/15/24 06/08/24 05:00 History 162 mg docusate sodium 50 mg capsule 50 mg PO DAILY 05/15/24 06/08/24 05:00 History (Colace Clear) 50 mg ferrous sulfate 325 mg (65 mg 325 mg PO .MWF anemia 05/15/24 06/08/24 05:00 History iron) tablet (FeroSul) 325 mg sertraline 50 mg tablet (Zoloft) 50 mg PO DAILY depression 05/15/24 06/08/24 05:00 History 50 mg Allergy/AdvReac Type Severity Reaction Status Date / Time No Known Allergies Allergy Verified 06/08/24 08:16 Surgical History Hx of appendectomy Social History Smoking Status: Never smoker History 2 Elective abortions Hx Para 1 Spontaneous abortions Hx # Term Pregnancies Ectopic pregnancies Hx # Pregnancies Multiple births # of living children NST FHR Rate Baby A Baseline: 140 Variability:: Moderate Accelerations:: 15 x 15 Decelerations:: None NST Reactive:: Yes FHR Category:: Category I ROS Constitutional Constitutional: Denies fatigue, fever(s) or malaise Eyes Eyes: Denies change in vision ENT HEENT: Denies dizziness or headache(s) Cardiovascular Cardiovascular: Denies chest pain, dyspnea or lightheadedness Respiratory/Chest Respiratory/Chest: Denies cough or dyspnea Gastrointestinal Gastrointestinal: Denies change in bowel habits Genitourinary Genitourinary: Denies burning urination or genital lesions Integumentary Integumentary: Denies rash Neurologic Neurologic: Denies confusion, dizziness, headache(s), numbness or weakness Vital Signs Vital Signs Vital Signs: 06/08/24 07:56 06/08/24 07:56 06/08/24 07:56 Temperature Temperature Source Temporal Pulse Rate 88 Respiratory Rate Blood Pressure 135/82 H BP Systolic 135 BP Diastolic 82 Pulse Ox 06/08/24 07:56 06/08/24 07:56 06/08/24 07:56 Temperature Temperature Source Pulse Rate 90 Respiratory Rate 16 Blood Pressure BP Systolic BP Diastolic Pulse Ox 96 06/08/24 07:56 06/08/24 12:44 06/08/24 12:44 Temperature 97.7 F L Temperature Source Pulse Rate 77 Respiratory Rate Blood Pressure BP Systolic BP Diastolic Pulse Ox 97 06/08/24 12:45 06/08/24 12:45 06/08/24 12:45 Temperature Temperature Source Temporal Pulse Rate 74 Respiratory Rate Blood Pressure 145/87 H BP Systolic 145 BP Diastolic 87 Pulse Ox 06/08/24 12:45 06/08/24 12:45 06/08/24 14:00 Temperature 97.4 F L Temperature Source Temporal Pulse Rate Respiratory Rate 16 Blood Pressure BP Systolic BP Diastolic Pulse Ox 06/08/24 14:00 06/08/24 14:00 06/08/24 14:01 Temperature 97.4 F L Temperature Source Pulse Rate Respiratory Rate 16 Blood Pressure 136/85 H BP Systolic 136 BP Diastolic 85 Pulse Ox 06/08/24 14:01 06/08/24 14:01 06/08/24 15:46 Temperature Temperature Source Pulse Rate 71 Respiratory Rate Blood Pressure 147/81 H BP Systolic 147 BP Diastolic 81 Pulse Ox 97 06/08/24 15:46 06/08/24 15:47 06/08/24 15:47 Temperature Temperature Source Pulse Rate 79 78 Respiratory Rate Blood Pressure BP Systolic BP Diastolic Pulse Ox 98 06/08/24 15:51 06/08/24 15:51 06/08/24 15:52 Temperature Temperature Source Pulse Rate 75 76 Respiratory Rate Blood Pressure 147/81 H BP Systolic 147 BP Diastolic 81 Pulse Ox 06/08/24 15:52 06/08/24 15:56 06/08/24 15:56 Temperature Temperature Source Pulse Rate 80 Respiratory Rate Blood Pressure 145/82 H BP Systolic 145 BP Diastolic 82 Pulse Ox 98 06/08/24 15:57 06/08/24 15:57 06/08/24 16:01 Temperature Temperature Source Pulse Rate 80 Respiratory Rate Blood Pressure 139/86 H BP Systolic 139 BP Diastolic 86 Pulse Ox 98 06/08/24 16:01 06/08/24 16:02 06/08/24 16:02 Temperature Temperature Source Pulse Rate 88 87 Respiratory Rate Blood Pressure BP Systolic BP Diastolic Pulse Ox 97 06/08/24 16:06 06/08/24 16:06 06/08/24 16:07 Temperature Temperature Source Pulse Rate 75 74 Respiratory Rate Blood Pressure 134/83 H BP Systolic 134 BP Diastolic 83 Pulse Ox 06/08/24 16:07 06/08/24 16:11 06/08/24 16:11 Temperature Temperature Source Pulse Rate 91 Respiratory Rate Blood Pressure BP Systolic BP Diastolic Pulse Ox 98 89 06/08/24 16:13 06/08/24 16:13 06/08/24 16:13 Temperature Temperature Source Pulse Rate 86 85 Respiratory Rate Blood Pressure 125/67 H BP Systolic 125 BP Diastolic 67 Pulse Ox 06/08/24 16:13 06/08/24 16:17 06/08/24 16:17 Temperature Temperature Source Pulse Rate 87 Respiratory Rate Blood Pressure 138/80 H BP Systolic 138 BP Diastolic 80 Pulse Ox 100 06/08/24 16:18 06/08/24 16:18 06/08/24 16:22 Temperature Temperature Source Pulse Rate 101 H Respiratory Rate Blood Pressure 131/71 H BP Systolic 131 BP Diastolic 71 Pulse Ox 99 06/08/24 16:22 06/08/24 16:23 06/08/24 16:23 Temperature Temperature Source Pulse Rate 91 87 Respiratory Rate Blood Pressure BP Systolic BP Diastolic Pulse Ox 98 06/08/24 16:26 06/08/24 16:26 06/08/24 16:28 Temperature Temperature Source Pulse Rate 88 90 Respiratory Rate Blood Pressure 130/71 H BP Systolic 130 BP Diastolic 71 Pulse Ox 06/08/24 16:28 06/08/24 16:32 06/08/24 16:32 Temperature Temperature Source Pulse Rate 82 Respiratory Rate Blood Pressure 133/75 H BP Systolic 133 BP Diastolic 75 Pulse Ox 98 Weight Weight: 116 kg Body Mass Index (BMI) 40.0 Physical Exam Const alert and no apparent distress General Appearance: cooperative HEENT normocephalic Resp normal respiratory effort GI soft to palpation GI Narrative: gravid, nontender, appropriate for gestational age Extremity no calf tenderness General Extremity: edema Skin no wounds Rashes: No rashes noted Psych activity/motor behavior normal Labs Labs Labs: Blood Type AB NEGATIVE Antibody Screen NEGATIVE Hct 30.9 % (37-47) L Hgb 9.8 g/dL (12.0-15.0) L Syphilis Total Ab Pending Assessment & Plan (1) Elective induction of labor planned: (2) 39 weeks gestation of : PLAN: Plan cytotec wallace/pit GBS negative
[2024-06-08] MEDS: Acetaminophen 500 MG Tablet PO (21:36)
[2024-06-08] MEDS: LACTATED RINGERS 500 ML 999 ML IV (22:01)
[2024-06-08] MEDS: Ondansetron 4 MG/2 ML Vial IV (22:21)
[2024-06-08] MEDS: 0.9% Saline Lock 10 ML Syringe IV (22:21)
--- NOTE | 2024-06-08 23:03 | OB.VAGDELI_ITS ---
Assessment & Plan (1) (spontaneous vaginal delivery): Maternal Data Information DIETER Calculator Estimated Delivery Date Method Current WG Current Estimate 06/14/24 Manual 39w 1d Final DIETER: 06/14/24 Gestational age: 39+1 Vaginal Delivery Maternal Presentation Maternal Presentation: Elective Induction Maternal Presentation: IOL for maternal obesity Type of Induction: Pitocin, Amniotomy and Cytotec Vaginal Delivery Information Procedure Performed: Spontaneous Vaginal Delivery Surgeon/Practitioner: Lexis Mcdonald Date of Procedure: 06/08/24 Pre-Procedure Diagnosis: term Post-Procedure Diagnosis: Type of anesthesia: Epidural Estimated Blood Loss: 200 cc Time of Delivery: 22:35 Findings Description of procedure: Cytotec x1. Pitocin started at 3cm. AROM for clear fluid. Progressed quickly to complete and pushed a few time to deliver the vertex in OA presentation. There was a cord around the neck x 1. Cord evulsed from placenta with reduction. Ante rior and posterior shoulder delivered quickly and the cord was immediately clamped. The infant cried upon delivery. The placenta was delivered manually. The cord evulsed at the insertion with the placenta. Insertion appears to be circumvallate. The uterus was explored and no tissue was found. A 2nd degree laceration was repaired with 2-0 Vicryl. All sponge lap and needle counts were correct. Procedure findings: Placenta with asymmetric insertion Presentation: Vertex and ABBY Amniotic Membrane Rupture Type: Artificial Amniotic Fluid Description: Clear Placental Delivery Description: Manual Removal Placenta Disposition: [facility] Specimen collected: Yes Description of specimen(s) removed: placenta Cord Vessel Description: 3 Vessels Cord Entanglement: Around neck x 1, loose Nuchal Cord Compression: With compression Infant A Gender: Male (1 minute): 6 (5 minute): 8 Delayed Cord Clamping: No Clubhouse Attendant terminal clerk: No Post Vaginal Deli Medications given after delivery: IV Pitocin Episiotomy Description: None Laceration: Midline and 2nd degree Complication Complications: Yes Complication Details: cord evulsion
[2024-06-08] MEDS: Oxytocin 15 Units/NS 250ml 15 UNITS/250 ML IV.SOLN 83 UNITS IV (23:15)
[2024-06-08] MEDS: Cefazolin 2 GM in Syringe IV (23:36)
[2024-06-09] VITALS (21 sets, daily range): BP systolic 106–150; BP diastolic 57–83; PULSE 75–110; RESP 14–16; TEMP 36.2–36.5; O2SAT 87–97
[2024-06-09 01:12] LABS: Syphilis Antibodies Non-reactive
[2024-06-09 01:25] LABS: Pathology Specimen OB SEE PATHOLOGY REPORT
--- NOTE | 2024-06-09 01:25 | PLAC_PTH ---
PATIENT: JOSSY BERKOWITZ LOC: [facility] U#:[id number] AGE/SX: 33/F ROOM: [facility] RE06/08/[address]: Dr. Lexis Mcdonald MD : 1990 BED: 1 DIS: 06/10/2024 SPEC #: [id number] RECD: 06/09/24 09:08 STATUS: MEENA GAFFNEY #: [id number] MP: 06/09/24 01:[address]: Lexis Mcdonald DEPT: SURGICAL PATHOLOGY RECD BY: Wiliam Sanchez ENTERED: 06/09/24 09:08 SP TYPE: PLACENTA OTHR DR: Dr. Domingo Dubois MD Tissues: Placenta, NOS Procedures: Surgery Specimen Level V HEADER OPERATION: Delivery PRE-OP DIAGNOSIS: Cord evulsion TISSUE SUBMITTED: Placenta MICROSCOPIC DIAGNOSIS Placenta: Placental disc - third trimester placenta (358 gm), partly fragmented. Membranes - no pathologic diagnosis. Umbilical cord - not available. 06/13/2024 MICROSCOPIC DESCRIPTION Slides are reviewed. GROSS DESCRIPTION SPECIMEN: PLACENTA / CLINICAL INFORMATION: A. Weight: 3.19 kg B. Gestational Age: 39 weeks C. Sex: Male PLACENTAL WEIGHT (POST FIXATION): 358 gm PLACENTAL DIMENSIONS: 17.0 x 14.0 x 3.5 cm PLACENTAL SHAPE: Body of the placenta is fragmented, completeness of placenta cannot be assessed. PLACENTAL WEIGHT FOR GESTATIONAL AGE: Within 10-99th percentile (over/under percentile) MEMBRANES - Present A. Insertion: Marginal B. Site of rupture from edge: Membranes are fragmented, distance of rupture can not be assessed. C. Color of membrane: Ross-simpson D. Abnormalities: None UMBILICAL CORD - Not present either attached to placenta or in the container. PLACENTAL DISC - Present A. Color of surface: Ross-simpson B. surface abnormalities: None C. Maternal cotyledons: Intact with minimal tears D. Attached retro placental clot: No clot E. Cut surface: Dark red and spongy F. Lesions: None G. Separate clot: Absent SECTIONS SUBMITTED: cassettes 1. Membrane roll 2. Placental disc, and maternal surfaces 3. Placental disc, and maternal surfaces 4. Placental disc, and maternal surfaces 5. Placental disc, and maternal surfaces, fragmented portion of placenta 6. Placental disc, and maternal surfaces, fragmented portion of placenta SJ. 06/10/2024 TC:5 CPT: 12980
--- NOTE | 2024-06-09 07:34 | PCM.PN.OB ---
Subjective Subjective Doing well. Ambulating and voiding without difficulty. Mild lochia. Breast feeding. Objective Data Objective Data Vital Signs: Vital Signs Temp Pulse Resp BP Pulse Ox O2 Del Method 97.1 F L 88 14 122/71 H 96 Room Air 06/09/24 04:00 06/09/24 04:00 06/09/24 04:00 06/09/24 04:00 06/09/24 04:00 06/09/24 04:00 Oxygen Delivery Method Room Air Weight: 116 kg Body Mass Index (BMI) 40.0 Intake & Output: Intake and Output for Last 24 Hours 06/07/24 06/08/24 06/09/24 23:59 23:59 23:59 Intake Total 1926.67 / 1926.67 250 / 250 Output Total 1100 / 1100 600 / 600 Balance 826.67 / 826.67 -350 / -350 Lab / Micro Data 06/08/24 07:50 Labs: Laboratory Results - last 24 hr 06/08/24 07:50: WBC 9.9, RBC 3.97 L, Hgb 9.8 L, Hct 30.9 L, MCV 77.8 L, MCH 24.7 L, MCHC 31.7 L, RDW Std Deviation 42.2, RDW Coeff of Santos 14.9 H, Plt Count 342, MPV 9.6, Immature Gran % (Auto) 0.800, Neut % (Auto) 68.8, Lymph % (Auto) 23.6, [place] % (Auto) 6.1, Eos % (Auto) 0.3, Baso % (Auto) 0.4, Absolute Neuts (auto) 6.8, Absolute Lymphs (auto) 2.34, Nucleated RBC % 0, Syphilis Total Ab Non-reactive, Blood Type AB NEGATIVE, Antibody Screen NEGATIVE 06/09/24 05:20: Screen NEGATIVE ROS Constitutional Constitutional: Denies fatigue, fever(s) or malaise Eyes Eyes: Denies change in vision ENT HEENT: Denies dizziness or headache(s) Cardiovascular Cardiovascular: Denies chest pain, dyspnea or lightheadedness Respiratory/Chest Respiratory/Chest: Denies cough or dyspnea Gastrointestinal Gastrointestinal: Denies change in bowel habits Genitourinary Genitourinary: Denies burning urination or genital lesions Integumentary Integumentary: Denies rash Neurologic Neurologic: Denies confusion, dizziness, headache(s), numbness or weakness Physical Exam Const alert and no apparent distress Narrative: below umbilicus. Assessment & Plan (1) (spontaneous vaginal delivery): PLAN: Plan routine care Ancef x 1 for manual removal of placenta
[2024-06-09] MEDS: Rho(D) Immune Globulin 300 MCG (1500 Unit) Syringe IV (11:35)
[2024-06-09] MEDS: Sertraline 50 MG Tablet PO (11:36)
[2024-06-09] MEDS: 0.9% Saline Lock 10 ML Syringe IV (11:37)
[2024-06-09] MEDS: Ibuprofen 600 MG Tablet PO ×2 (14:13→19:25)
[2024-06-09] MEDS: Senna/Docusate Sodium 1 Tablet PO (14:15)
[2024-06-09] MEDS: Acetaminophen 500 MG Tablet 1000 MG PO (20:40)
[2024-06-10] MEDS: Ibuprofen 600 MG Tablet PO ×2 (01:25→11:32)
[2024-06-10 03:24] VITALS: BP 132/81; PULSE 86; RESP 16; TEMP 36.4; O2SAT 98
[2024-06-10] MEDS: Acetaminophen 500 MG Tablet 1000 MG PO (03:27)
--- NOTE | 2024-06-10 08:17 | PCM.PROGNOTE ---
Subjective Subjective patient seen at bedside, doing well. Patient reports good pain control. lochia mild. using donor milk until her milk supply comes in Objective Data Objective Data Vital Signs: Vital Signs Temp Pulse Resp BP Pulse Ox O2 Del Method 97.5 F L 86 16 132/81 H 98 Room Air 06/10/24 03:24 06/10/24 03:24 06/10/24 03:24 06/10/24 03:24 06/10/24 03:24 06/10/24 03:24 Oxygen Delivery Method Room Air Weight: 116 kg Body Mass Index (BMI) 40.0 Intake & Output: Intake and Output for Last 24 Hours 06/08/24 06/09/24 06/10/24 23:59 23:59 23:59 Intake Total 1926.67 / 1926.67 250 / 250 Output Total 1100 / 1100 600 / 600 Balance 826.67 / 826.67 -350 / -350 Lab / Micro Data 06/08/24 07:50 Physical Exam Const alert and oriented x3 General Appearance: cooperative HEENT normocephalic Neck General: normal visual inspection GI soft to palpation and non-distended GI Narrative: Fundus firm Extremity normal to inspection and no calf tenderness Skin no rashes or lesions noted Neuro oriented x3 and CN's II-XII intact bilaterally Psych mental status grossly normal Assessment & Plan Assessment/Plan (1) (spontaneous vaginal delivery): PLAN: Plan PPD#2 , Doing well Routine care pain mgmt ambulation dc home
--- NOTE | 2024-06-10 08:18 | DCINST_ITS ---
Discharge Instructions Diet Discharge Diet: No restrictions DC O2, CPAP, BIPAP needs Home O2 Discharge instructions: No Dressing / Incision May resume sexual activity in: 6-8 weeks Dressing / Incision Call your doctor if you observe: Fever of 101 or Higher, Inability to urinate, Using more than 1 pad per hour and Uncontrolled pain Follow Up Care Please Follow Up With: Ju Goodrich MD When: 1-2 weeks post and again at 6 weeks post . [phone] Test Results: Test results from this visit will be discussed in further detail at your follow- up appointment, if applicable. Discharge Plan Admission Admit Date/Time: 06/08/24 07:25 Attending Provider: Lexis Mcdonald Primary Care Provider: Domingo Dubois Discharge Orders/Prescriptions Prescriptions: New acetaminophen 500 mg Tablet 1,000 mg PO Q6H PRN PRN (Reason: Pain 1-10 Or Fever) Qty: 0 0RF dibucaine 1 % Ointment 1 applic topical TID PRN PRN (Reason: Discomfort) Qty: 0 0RF Protocol: *Topical Application Instructions APPLICATION INSTRUCTIONS: To perineum for discomfort ibuprofen 600 mg Tablet 600 mg PO Q6H PRN PRN (Reason: Pain Score 1-10) Qty: 0 0RF Continued valacyclovir [Valtrex] 500 mg Tablet 500 mg PO BID [id number]-azs-Ws-[id number] 1 mg Tablet 1 tab PO DAILY sertraline [Zoloft] 50 mg tablet 50 mg PO DAILY Colace Clear 50 mg capsule 50 mg PO DAILY ferrous sulfate [FeroSul] 325 mg (65 mg iron) Tablet 325 mg PO .MWF Discontinued Vitamin D3 Complete 18 mg iron-800 mcg-150 mg Tablet 1 tab PO QODAY aspirin 81 mg capsule 162 mg PO DAILY Referrals / Follow Up: Domingo Dubois MD [Primary Care Provider] - Disposition Disposition (needs filled in before D/C Order can be placed): Home, Self Care
[2024-06-10 08:36] VITALS: BP 157/93; PULSE 100; RESP 18; TEMP 36.2; O2SAT 96
[2024-06-10] MEDS: Sertraline 50 MG Tablet PO (11:32)
[2024-06-10] MEDS: Senna/Docusate Sodium 1 Tablet PO (11:32)
[2024-06-10 14:00] VITALS: BP 108/59; PULSE 100; RESP 16; TEMP 36.2; O2SAT 96
--- NOTE | 2024-06-13 15:10 | CASEMGMT ---
Social Work Assessment Labor and Delivery Unit Patient Address: [facility] [place] [place] [address] Phone number: [phone] Date of Referral: 06/10/24 Time of Referral:? 1146 Referred By: Dr. Mcdonald Date of Intervention: ??06/10/24 Time of Intervention:? 1200 Reason for Referral:?anxiety (zoloft) and PPD Sw completed chart review and acknowledges social work consult due to maternal mental health history. Sw presented to bedside and introduced self to mother of baby (MOB- Marcela) and father of baby (FOB- Manuel). Sw explained reason for sw involvement and completed psychosocial assessment. History obtained from: medical records, MOB and FOB. Household composition: Currently residing in the family home is MOB, HILARY their older daughter, Padmini (03/03/22) and now baby when ready for discharge from labor and delivery. Parents deny any issues or concerns with housing, stating that it is safe and secure. Patient's parent/guardian status:? ?Parents report that they have been together for 4 years after meeting online. This is second baby for both parents together. No concerns reported of domestic violence or intimate partner violence. Medical History: ?WILLIE is 33 year old female who is 2, para 1- now 2 following labor and delivery of . WILLIE received routine care during with . WILLIE presented to hospital for elective induction of labor due to obesity. Baby was born on [birth year]/24 via spontaneous vaginal delivery at 39 weeks gestation. Baby boy, named Bari Hamilton, was born weighing 7lb 1oz with apgars of 6 and 8 at one and five minutes of life, respectfully. WILLIE states that she is breast feeding and baby will be followed by Dr. Jonas for pediatrics. Educational Status:? WILLIE obtained her Master's degree and HILARY has his associates. No concerns with reading, learning or comprehension. Financial Status: Both parents are gainfully employed outside of the home. 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 Supplies: Parents have obtained all necessary baby supplies, including: car seat, safe sleep space, clothes, diapers and wipes. Childcare/Caregiver(s):?WILLIE states that she will be the primary caregiver to baby during her maternity leave. When both parents have returned to work and sister will go to daycare. Transportation:??Both parents have their drivers license and reliable means of transportation, no barriers Programs/Agencies Involved: ???Parents are not connected to any community resources that assist them financially. WILLIE does have linkage to mental health services and supports by Dr. Dumont who prescribes her zoloft. Children Services/Legal Issues:??? No history of children services involvement, no issues or concerns warranting referral to be made at this time. Behavioral Health Issues: ??Mental Health History:??FOB denies mental health history or diagnoses. MOB has history of anxiety and depression. MOB states that during that time she was anxious, tearful and felt on edge. MOB is prescribed zoloft by her primary care doctor. ? Substance Use History: Parents deny substance use history prior to and during . ? Family History: Parents deny family history of substance use or significant mental health diagnoses. ? Drug Screens: No drug screens observed during chart review. Family/Social Stressors:? Parents deny any issues, concerns or stressors at this time. Support Systems: MOB identifies that paternal grandparents are their biggest supports at this time. Depression/Shaken Baby/Safe Sleeping: Sw educated parents on signs and symptoms of baby blues and mood and anxiety disorders to be mindful of during this period. MOB states that she is aware of symptoms that she experienced in the past, and feels more receptive to talking about them if she were to struggle again during this period. MOB states that FOB would be able to recognize if she were struggling and would know how to help and support her. MOB states at this time she feels really good and is not experiencing any depression, anxiety or sadness. Sw educated parents on shaken baby prevention and ABCs of safe sleep. Parents express understanding. ASSESSMENT:?MOB and baby admitted following labor and delivery of . MOB with mental health history of anxiety and depression. MOB talkative and open regarding her mental health history and being more open to talking about this going forward. MOB states that she feels a chávez/ connection with baby and is happy to not be any more. MOB has natural supports in place and has all necessary baby supplies. MOB talkative and receptive to sw involvement. FOB more reserved and only answered questions or participated in conversation when directly asked. PLAN:?? No other services requested or indicated. MOB and baby to be discharged when medically ready. Parents were provided literature regarding: signs and symptoms of baby blues and mood and anxiety disorders, Help Me Grow, shaken baby prevention, ABCs of safe sleep and a list of county resources that are available for them should any needs present themselves. Melly Yan, MEDICAL AFFAIRS SPECIALIST, MEDICAL LANGUAGE SPECIALIST
--- NOTE | 2024-06-13 15:29 | CASEMGMT ---
Social Work Assessment Labor and Delivery Unit Patient Address: [facility] [place] [address] [place] [address] Phone number: [phone] Date of Referral: 06/10/24 Time of Referral:? 1146 Referred By: Dr. Mcdonald Date of Intervention: ??06/10/24 Time of Intervention:? 1200 Reason for Referral:?anxiety (zoloft) and PPD Sw completed chart review and acknowledges social work consult due to maternal mental health history. Sw presented to bedside and introduced self to mother of baby (MOB- Marcela) and father of baby (FOB- Manuel). Sw explained reason for sw involvement and completed psychosocial assessment. History obtained from: medical records, MOB and FOB. Household composition: Currently residing in the family home is MOB, HILARY their older daughter, Padmini (03/03/22) and now baby when ready for discharge from labor and delivery. Parents deny any issues or concerns with housing, stating that it is safe and secure. Patient's parent/guardian status:? ?Parents report that they have been together for 4 years after meeting online. This is second baby for both parents together. No concerns reported of domestic violence or intimate partner violence. Medical History: ?WILLIE is 33 year old female who is 2, para 1- now 2 following labor and delivery of . WILLIE received routine care during with [facility]. WILLIE presented to hospital for elective induction of labor due to obesity. Baby was born on 06/[birth year]24 via spontaneous vaginal delivery at 39 weeks gestation. Baby boy, named Bari Hamilton, was born weighing 7lb 1oz with apgars of 6 and 8 at one and five minutes of life, respectfully. WILLIE states that she is breast feeding and baby will be followed by Dr. Jonas for pediatrics. Educational Status:? WILLIE obtained her Master's degree and HILARY has his associates. No concerns with reading, learning or comprehension. Financial Status: Both parents are gainfully employed outside of the home. 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 Supplies: Parents have obtained all necessary baby supplies, including: car seat, safe sleep space, clothes, diapers and wipes. Childcare/Caregiver(s):?WILLIE states that she will be the primary caregiver to baby during her maternity leave. When both parents have returned to work and sister will go to daycare. Transportation:??Both parents have their drivers license and reliable means of transportation, no barriers Programs/Agencies Involved: ???Parents are not connected to any community resources that assist them financially. WILLIE does have linkage to mental health services and supports by Dr. Dumont who prescribes her zoloft. Children Services/Legal Issues:??? No history of children services involvement, no issues or concerns warranting referral to be made at this time. Behavioral Health Issues: ??Mental Health History:??FOB denies mental health history or diagnoses. MOB has history of anxiety and depression. MOB states that during that time she was anxious, tearful and felt on edge. MOB is prescribed zoloft by her primary care doctor. ? Substance Use History: Parents deny substance use history prior to and during . ? Family History: Parents deny family history of substance use or significant mental health diagnoses. ? Drug Screens: No drug screens observed during chart review. Family/Social Stressors:? Parents deny any issues, concerns or stressors at this time. Support Systems: MOB identifies that paternal grandparents are their biggest supports at this time. Depression/Shaken Baby/Safe Sleeping: Sw educated parents on signs and symptoms of baby blues and mood and anxiety disorders to be mindful of during this period. MOB states that she is aware of symptoms that she experienced in the past, and feels more receptive to talking about them if she were to struggle again during this period. MOB states that FOB would be able to recognize if she were struggling and would know how to help and support her. MOB states at this time she feels really good and is not experiencing any depression, anxiety or sadness. Sw educated parents on shaken baby prevention and ABCs of safe sleep. Parents express understanding. ASSESSMENT:?MOB and baby admitted following labor and delivery of . MOB with mental health history of anxiety and depression. MOB talkative and open regarding her mental health history and being more open to talking about this going forward. MOB states that she feels a chávez/ connection with baby and is happy to not be any more. MOB has natural supports in place and has all necessary baby supplies. MOB talkative and receptive to sw involvement. FOB more reserved and only answered questions or participated in conversation when directly asked. PLAN:?? No other services requested or indicated. MOB and baby to be discharged when medically ready. Parents were provided literature regarding: signs and symptoms of baby blues and mood and anxiety disorders, Help Me Grow, shaken baby prevention, ABCs of safe sleep and a list of county resources that are available for them should any needs present themselves. Melly Yan, CUSTOMER RELATIONS COORDINATOR, TECHNICAL PROFESSIONAL
--- NOTE | 2024-06-16 14:38 | NURSING ---
Follow up phone call made. No answer. Voicemail left.
== END 2024-06-10 16:30 | disposition home or self-care (01) | DRG 807 ==
PROVIDERS: Admitting Provider Obstetrics & Gynecology; PCP Family Medicine; Referring Provider Obstetrics & Gynecology; Visit Provider Obstetrics & Gynecology
DX: O99.214 Obesity complicating childbirth (principal); Z37.0 Single live birth; E66.9 Obesity, unspecified; O70.1 Second degree perineal laceration during delivery; O69.89X0 Labor and delivery complicated by other cord complications, not applicable or unspecified; O43.113 Circumvallate placenta, third trimester; O69.81X0 Labor and delivery complicated by cord around neck, without compression, not applicable or unspecified; Z79.82 Long term (current) use of aspirin; Z3A.39 39 weeks gestation of pregnancy; Z86.79 Personal history of other diseases of the circulatory system
CPT/HCPCS: 59025; 59050; 85025; 85461; 86780; 86850; 86900; 86901; 88307; 90384; 99221; J7120; A4216; G0378; J2405; J2790; J2791